=== PATIENT | male | born 1995 | race Caucasian/White ===

== ENCOUNTER 2019-08-15 21:31 | Emergency (ER) | payer SELFPAY ==
--- NOTE | 2019-08-15 23:09 | ER ---
Nurse's Notes [facility] Name: Jona Borjas Age: 23 yrs Sex: Male : 1995 Arrival Date: 08/15/2019 Time: 21:35 Bed Waiting Private MD: Diagnosis: Presentation: 08/14 21:41 Chief complaint: Patient states: Abscess to left leg for 6 days. On antibiotics for ll1 past 4 days. Redness started yesterday. Swelling has decreased he states. Coronavirus screen: Proceed with normal triage. Patient denies a cough. Patient denies shortness of breath or difficulty breathing. Patient denies measured and/or subjective temperature greater than 100.4F prior to today's visit. Patient denies travel on a cruise ship or to a country the [facility] currently lists as an affected area. Patient denies contact with known and/or suspected case of COVID-19. Ebola Screen: Patient denies travel to an Ebola-affected area in the 21 days before illness onset. Initial Sepsis Screen: Does the patient meet any 2 criteria? HR > 90 bpm. No. Patient's initial sepsis screen is negative. Does the patient have a suspected source of infection? Yes: Skin breakdown/wound. Risk Assessment: Do you want to hurt yourself or someone else? Patient reports no desire to harm self or others. Onset of symptoms was August 09, 2019. 21:41 Method Of Arrival: Ambulatory ll1 21:41 Acuity: RANJIT 3 ll1 Historical: - Allergies: 21:44 No Known Allergies; ll1 - PSHx: 21:44 ACL/meniscus repair; ll1 - Immunization history:: Last tetanus immunization: up to date Flu vaccine is up to date. - Social history:: Smoking status: Patient reports the use of cigarette tobacco products, smokes one-half pack cigarettes per day, Patient/guardian denies using alcohol, street drugs. Vital Signs: 21:41 BP 142 / 93; Pulse 95; Resp 17; Temp 97.8; Pulse Ox 99% ; Pain 7/10; ll1 ED Course: 21:35 Patient arrived in ED. cl3 21:43 Triage completed. ll1 21:44 Arm band placed on. ll1 22:27 Efrem Oscar NP is PHCP. pm1 22:27 Emanuel Mcmillan MD is Attending Physician. pm1 22:40 Not in lobby when room became available. ll1 23:00 Not in lobby or restroom. ll1 23:06 Patient attempt to reach patient at the number listed but no answer, recording states a sg voicemail has not been setup at this time. Patient's name was called from ER lobby. No response. Unable to locate patient. Will disposition as left without being seen by a provider. Administered Medications: No medications were administered Outcome: 23:09 Patient left the ED. ll1 Signatures: Shiva Sidhu RN RN Efrem Esposito NP SKE[employer] UP pm1 Emily Cifuentes cl3 Zackery Cifuentes RN RN ll1 Corrections: (The following items were deleted from the chart) 23:08 23:06 Not in lobby when rom became available. ll1 ll1
[2019-08-15 23:14] VITALS: BP 142/93; TEMP 97.8; O2SAT 99
== END 2019-08-15 23:09 | disposition left against medical advice (07) ==
LOC: ER 21:31
DX: Z53.21 Procedure and treatment not carried out due to patient leaving prior to being seen by health care provider (principal)
CPT/HCPCS: 99281

== ENCOUNTER 2019-08-16 17:35 | Emergency (ER) | payer SELFPAY ==
[2019-08-16] MEDS ORDERED: DOXYCYCLINE 100 MG CAP PO ONE (19:51)
--- NOTE | 2019-08-16 20:35 | ER ---
Nurse's Notes [facility] Name: Jona Borjas Age: 23 yrs Sex: Male : 1995 Arrival Date: 08/16/2019 Time: 17:37 Bed 24 Private MD: Diagnosis: Cellulitis of left lower limb Presentation: 08/15 18:15 Chief complaint: Patient states: LEFT ANTERIOR LEG ABSCESS, OPEN AND DRAINING, ON ABX bp SINCE 08/11. Coronavirus screen: Proceed with normal triage. Ebola Screen: No symptoms or risks identified at this time. Initial Sepsis Screen: Does the patient meet any 2 criteria? No. Patient's initial sepsis screen is negative. Does the patient have a suspected source of infection? Yes: Skin breakdown/wound. Risk Assessment: Do you want to hurt yourself or someone else? Patient reports no desire to harm self or others. Onset of symptoms is unknown. 18:15 Method Of Arrival: Ambulatory bp 18:15 Acuity: RANJIT 4 bp Triage Assessment: 19:15 General: Appears in no apparent distress. Behavior is calm, cooperative, appropriate rr5 for age. Historical: - Allergies: 18:17 No Known Allergies; bp - Home Meds: 18:17 None [Active]; bp - PMHx: 18:17 None; bp - PSHx: 18:17 Knee surgery; bp - Immunization history:: Adult Immunizations up to date. - Social history:: Smoking status: Patient reports the use of cigarette tobacco products, unknown amount. Screenin:15 Abuse screen: Denies threats or abuse. Denies injuries from another. Nutritional rr5 screening: No deficits noted. Tuberculosis screening: No symptoms or risk factors identified. Fall Risk None identified. Total Costa Fall Scale indicates No Risk (0-24 pts). Assessment: 19:15 General: Appears in no apparent distress. comfortable, Behavior is calm, cooperative, rr5 appropriate for age. 19:15 Pain: Complains of pain in left leg and left torres Pain does not radiate. Pain currently rr5 is 7 out of 10 on a pain scale. Quality of pain is described as aching, Pain began gradually, Is intermittent. Neuro: Level of Consciousness is awake, alert, obeys commands, Oriented to person, place, time, situation. Cardiovascular: Capillary refill < 3 seconds Patient's skin is warm and dry. Respiratory: Airway is patent Respiratory effort is even, unlabored, Respiratory pattern is regular, symmetrical. GI: No signs and/or symptoms were reported involving the gastrointestinal system. : No signs and/or symptoms were reported regarding the genitourinary system. EENT: No signs and/or symptoms were reported regarding the EENT system. Derm: Skin temperature is warm Wound noted left torres Wound is dry crusted wound redness on the area noted. no bleeding or discharge noted. Musculoskeletal: Circulation, motion, and sensation intact. Capillary refill < 3 seconds. 20:05 Reassessment: Patient appears in no apparent distress at this time. No changes from rr5 previously documented assessment. Patient is alert, oriented x 3, equal unlabored respirations, skin warm/dry/pink. 20:50 Reassessment: Patient appears in no apparent distress at this time. Patient is alert, rr5 oriented x 3, equal unlabored respirations, skin warm/dry/pink. discharge instruction given and explained without complaints made Patient states symptoms have improved. Vital Signs: 18:15 BP 116 / 72; Pulse 87; Resp 16; Temp 97.8; Pulse Ox 97% ; Weight 81.65 kg; Height 6 ft. bp 2 in. (187.96 cm); 19:30 BP 128 / 88; Pulse 85; Resp 16; Pulse Ox 100% ; Pain 7/10; rr5 20:50 BP 121 / 70; Pulse 80; Resp 16; Pulse Ox 98% ; rr5 18:15 Body Mass Index 23.11 (81.65 kg, 187.96 cm) bp ED Course: 17:37 Patient arrived in ED. as 18:16 Triage completed. bp 18:17 Arm band placed on. bp 18:39 Davina Pennington FNP-C is PHCP. snw 18:39 Emanuel Mcmillan MD is Attending Physician. snw 19:09 Bhavesh Pickett RN is Primary Nurse. rr5 19:10 Patient has correct armband on for positive identification. Bed in low position. rr5 19:10 No provider procedures requiring assistance completed. rr5 19:54 Wound care: to cellulitis located on left torres was cleaned with Hibiclens, dressed with rr5 Neosporin, 4X4s, Kerlix, Patient tolerated well. 20:50 Patient did not have IV access during this emergency room visit. rr5 Administered Medications: 19:54 Drug: Hibiclens 4 % 1 application {Note: left lower leg.} Route: Topical; Site: wound; rr5 20:53 Follow up: Response: No adverse reaction rr5 19:55 Drug: Doxycycline 100 mg Route: PO; rr5 20:53 Follow up: Response: No adverse reaction rr5 20:40 Drug: Tetanus-Diphtheria Toxoid Adult 0.5 ml {Manager Applied: [employer]. Exp: rr5 04/14/2021. Lot #: [id number]. } Route: IM; Site: right deltoid; 20:55 Follow up: Response: No adverse reaction rr5 Outcome: 20:34 Discharge ordered by MD. snw 20:50 Discharged to home ambulatory. rr5 20:50 Condition: stable 20:50 Discharge instructions given to patient, Instructed on discharge instructions, follow up and referral plans. medication usage, Demonstrated understanding of instructions, follow-up care, medications, Prescriptions given X 3. 20:55 Patient left the ED. rr5 Signatures: Davina Pennington, SATELLITE TV INSTALLER-C SATELLITE TV INSTALLER-Sara Abarca Brian, RN RN bp Bhavesh Pickett, RN RN rr5 Corrections: (The following items were deleted from the chart) 19:55 19:30 BP 128 / 8; Pulse 85bpm; Resp 16bpm; Pulse Ox 100%; Pain 7/10; rr5 rr5
--- NOTE | 2019-08-16 20:36 | EDPHYS ---
Physician Documentation [facility] Name: Jona Borjas Age: 23 yrs Sex: Male : 1995 Arrival Date: 08/16/2019 Time: 17:37 Bed 24 Private MD: ED Physician Emanuel Mcmillan HPI: 08/15 22:25 This 23 yrs old Male presents to ER via Ambulatory with complaints of Leg snw Swelling. 22:25 The patient presents with an abscess, small, swelling, tenderness. The complaints snw affect the left torres. Context: The problem was sustained outdoors, the patient can fully bear weight, the patient is able to ambulate. Onset: The symptoms/episode began/occurred 1 week(s) ago, and became persistent. Associated signs and symptoms: Pertinent positives: redness to lower left leg around draining abscess, on Bactrim since 08/12/19. Severity of symptoms: At their worst the symptoms were mild. It is unknown whether or not the patient has had similar symptoms in the past. The patient has been recently seen by a physician: with similar presenting complaints, and apparently given a diagnosis of abscess, I\T\D and given Bactrim. Historical: - Allergies: 18:17 No Known Allergies; bp - Home Meds: 18:17 None [Active]; bp - PMHx: 18:17 None; bp - PSHx: 18:17 Knee surgery; bp - Immunization history:: Adult Immunizations up to date. - Social history:: Smoking status: Patient reports the use of cigarette tobacco products, unknown amount. ROS: 22:26 Constitutional: Negative for fever, chills, and weight loss, Eyes: Negative for injury, snw pain, redness, and discharge, ENT: Negative for injury, pain, and discharge, Neck: Negative for injury, pain, and swelling, Cardiovascular: Negative for chest pain, palpitations, and edema, Respiratory: Negative for shortness of breath, cough, wheezing, and pleuritic chest pain, Abdomen/GI: Negative for abdominal pain, nausea, vomiting, diarrhea, and constipation, Back: Negative for injury and pain, : Negative for injury, bleeding, discharge, and swelling, MS/Extremity: Negative for injury and deformity, Neuro: Negative for headache, weakness, numbness, tingling, and seizure, Psych: Negative for depression, anxiety, suicide ideation, homicidal ideation, and hallucinations. 22:26 Skin: Positive for cellulitis, of the left torres. Exam: 22:23 Constitutional: This is a well developed, well nourished patient who is awake, alert, snw and in no acute distress. Head/Face: Normocephalic, atraumatic. Eyes: Pupils equal round and reactive to light, extra-ocular motions intact. Lids and lashes normal. Conjunctiva and sclera are non-icteric and not injected. Cornea within normal limits. Periorbital areas with no swelling, redness, or edema. ENT: Nares patent. No nasal discharge, no septal abnormalities noted. Tympanic membranes are normal and external auditory canals are clear. Oropharynx with no redness, swelling, or masses, exudates, or evidence of obstruction, uvula midline. Mucous membranes moist. Neck: Trachea midline, no thyromegaly or masses palpated, and no cervical lymphadenopathy. Supple, full range of motion without nuchal rigidity, or vertebral point tenderness. No Meningismus. Chest/axilla: Normal chest wall appearance and motion. Nontender with no deformity. No lesions are appreciated. Cardiovascular: Regular rate and rhythm with a normal S1 and S2. No gallops, murmurs, or rubs. Normal PMI, no JVD. No pulse deficits. Respiratory: Lungs have equal breath sounds bilaterally, clear to auscultation and percussion. No rales, rhonchi or wheezes noted. No increased work of breathing, no retractions or nasal flaring. Abdomen/GI: Soft, non-tender, with normal bowel sounds. No distension or tympany. No guarding or rebound. No evidence of tenderness throughout. Back: No spinal tenderness. No costovertebral tenderness. Full range of motion. MS/ Extremity: Pulses equal, no cyanosis. Neurovascular intact. Full, normal range of motion. Neuro: Awake and alert, GCS 15, oriented to person, place, time, and situation. Cranial nerves II-XII grossly intact. Motor strength 5/5 in all extremities. Sensory grossly intact. Cerebellar exam normal. Normal gait. Psych: Awake, alert, with orientation to person, place and time. Behavior, mood, and affect are within normal limits. 22:23 Skin: Appearance: normal except for affected area, abscess, that is small, with drainage, that is serosanguinous, pt on Bactrim since 08/12/19, with surrounding cellulitis, cellulitis, that is mild, well demarcated, on the left torres. Vital Signs: 18:15 BP 116 / 72; Pulse 87; Resp 16; Temp 97.8; Pulse Ox 97% ; Weight 81.65 kg; Height 6 ft. bp 2 in. (187.96 cm); 19:30 BP 128 / 88; Pulse 85; Resp 16; Pulse Ox 100% ; Pain 7/10; rr5 20:50 BP 121 / 70; Pulse 80; Resp 16; Pulse Ox 98% ; rr5 18:15 Body Mass Index 23.11 (81.65 kg, 187.96 cm) bp MDM: 19:08 Patient medically screened. snw 22:24 Data reviewed: vital signs, nurses notes. Data interpreted: Pulse oximetry: on room air snw is 98 %. Interpretation: normal. Counseling: I had a detailed discussion with the patient and/or guardian regarding: the historical points, exam findings, and any diagnostic results supporting the discharge/admit diagnosis, the need for outpatient follow up, to return to the emergency department if symptoms worsen or persist or if there are any questions or concerns that arise at home. Special discussion: Based on the history and exam findings, there is no indication for further emergent testing or inpatient evaluation. I discussed with the patient/guardian the need to see the primary care provider for further evaluation of the symptoms. 08/15 19:38 Order name: Wound dressing; Complete Time: 19:54 snw Administered Medications: 19:54 Drug: Hibiclens 4 % 1 application {Note: left lower leg.} Route: Topical; Site: wound; rr5 20:53 Follow up: Response: No adverse reaction rr5 19:55 Drug: Doxycycline 100 mg Route: PO; rr5 20:53 Follow up: Response: No adverse reaction rr5 20:40 Drug: Tetanus-Diphtheria Toxoid Adult 0.5 ml {Fence [employer]: [email or web address]. Exp: rr5 04/14/2021. Lot #: [id number]. } Route: IM; Site: right deltoid; 20:55 Follow up: Response: No adverse reaction rr5 Disposition: 22:33 Co-signature as Attending Physician, Emanuel Mcmillan MD. rn Disposition: 08/16/19 20:34 Discharged to Home. Impression: Cellulitis of left lower limb. - Condition is Stable. - Discharge Instructions: Cellulitis, Adult, VIS, Tetanus, Diphtheria (Td) - CDC, Heat Therapy. - Prescriptions for Bactroban 2 % Topical Ointment - apply 1 application by INTRANASAL route every 12 hours for 5 days; 15 gram. Doxycycline Hyclate 100 mg Oral Tablet - take 1 tablet by ORAL route every 12 hours; 20 tablet. Diclofenac Sodium 75 mg Oral Tablet Sustained Release - take 1 tablet by ORAL route 2 times per day; 30 tablet. - Medication Reconciliation Form, Thank You Letter, Antibiotic Education, Prescription Opioid Use, Work release form form. - Follow up: Emergency Department; When: As needed; Reason: Worsening of condition. Follow up: Private Physician; When: 2 - 3 days; Reason: Recheck today's complaints, Continuance of care, Re-evaluation by your physician. - Notes: Please continue current antibiotics Signatures: Davina Pennington, FOOD MIXER ASSEMBLER-C FOOD MIXER ASSEMBLER-Csnw Emanuel Mcmillan MD MD rn Peltier, Brian, RN RN bp Roque, Raymond, CHELSEA RN rr5 Corrections: (The following items were deleted from the chart) 20:55 20:34 08/16/2019 20:34 Discharged to Home. Impression: Cellulitis of left lower limb. rr5 Condition is Stable. Forms are Medication Reconciliation Form, Thank You Letter, Antibiotic Education, Prescription Opioid Use. Follow up: Emergency Department; When: As needed; Reason: Worsening of condition. Follow up: Private Physician; When: 2 - 3 days; Reason: Recheck today's complaints, Continuance of care, Re-evaluation by your physician. snw
[2019-08-16] MEDS ORDERED: TETANUS & DIPHTHERIA TOX,ADULT 0.5 ML VIAL ONE (20:45)
[2019-08-16 21:37] VITALS: TEMP 97.8
[2019-08-16 21:39] VITALS: BP 128/88; O2SAT 100
== END 2019-08-16 20:55 | disposition home or self-care (01) ==
LOC: ER 17:35
DX: L03.116 Cellulitis of left lower limb (principal); Z23 Encounter for immunization; Z72.0 Tobacco use
CPT/HCPCS: 90471; 90714; 99283